=== PATIENT | female | born 1995 | race Two or more races ===

== ENCOUNTER 2023-06-13 22:06 | Emergency (ER) | payer OTHER ==
[~2023-06-13] VITALS: Ht 165.1 cm; Wt 52.2 kg
[2023-06-14] MEDS: KETOROLAC TROMETH 30 MG/ML 1ML VIAL IM ONE (01:44)
[2023-06-14] MEDS: FLUORESCEIN SOD OPTH TEST STRIP LEFTEYE ONE (02:15)
[2023-06-14] MEDS ORDERED: IBUP-1455 PO (02:38)
[2023-06-14] MEDS ORDERED: CIPR0.3S67 OP (02:50)
[2023-06-14 04:01] VITALS: BP 119/82; PULSE 79; RESP 18; TEMP 98.8; O2SAT 97
== END 2023-06-14 04:05 | disposition home or self-care (01) ==
LOC: ER 22:06
DX: S05.02XA Injury of conjunctiva and corneal abrasion without foreign body, left eye, initial encounter (principal); X58.XXXA Exposure to other specified factors, initial encounter; Y93.89 Activity, other specified; Y92.89 Other specified places as the place of occurrence of the external cause; Y99.8 Other external cause status
CPT/HCPCS: 96372; 99283; J1885